=== PATIENT | female | born 1970 | race Caucasian/White ===

== ENCOUNTER 2020-11-22 15:28 | Outpatient (REF) | payer OTHER, SELFPAY | END 2020-11-22 15:29 | disposition home or self-care (01) | LOC: HO.LAB 15:28 | PROVIDERS: Visit Provider Internal Medicine | DX: Z20.822 Contact with and (suspected) exposure to COVID-19 (principal) | CPT/HCPCS: C9803; U0003; U0005 ==

== ENCOUNTER 2021-01-25 11:26 | Outpatient (REF) | payer OTHER, SELFPAY | END 2021-01-25 11:27 | disposition home or self-care (01) | LOC: HO.LAB 11:26 | PROVIDERS: Visit Provider Internal Medicine | DX: Z20.822 Contact with and (suspected) exposure to COVID-19 (principal) | CPT/HCPCS: C9803; U0003; U0005 ==

== ENCOUNTER 2021-02-22 07:14 | Emergency (ER) | payer OTHER, SELFPAY ==
[2021-02-22 07:45] VITALS: BP 134/64; PULSE 102; RESP 18; TEMP 36.6; O2SAT 100; BMI 25.8
--- NOTE | 2021-02-22 08:28 | ED_ITS ---
HPI - URI/Sore Throat General Chief Complaint: Upper Respiratory Symptoms Stated Complaint: flu like symptoms Time Seen by Provider: 02/22/21 08:15 Source: patient Mode of arrival: ambulatory Limitations: no limitations History of Present Illness HPI Narrative: This is a 50 years old patient presented to the emergency department complaining of a runny nose congestion postnasal drip sore throat. Denies any vomiting fever chills chest pain shortness of breath she has no comorbidity she does not take any medicine MD elicited complaint: sore throat, rhinorrhea, nasal congestion and sinus pain Onset (ago): day(s) (1) Consistency: constant Severity: moderate Description of mucous: yellow Able to tolerate fluids by mouth: Yes Exacerbating factors: nothing Associated symptoms: denies other symptoms Related Data Allergies Allergy/AdvReac Type Severity Reaction Status Date / Time aspirin [ASPIRIN] Allergy Mild SWELLING Unverified 04/12/20 16:00 Review of Systems Review of Systems: Yes all other systems are reviewed and are negative Constitutional: Constitutional: Denies fever(s) and Denies headache(s) Eyes: Eyes: Denies eye discharge ENT: Reports facial pain and Denies headache(s) Cardiovascular: Cardiovascular: Denies chest pain Gastrointestinal: Gastrointestinal: Reports no additional gastrointestinal complaints Neurologic: Denies headache(s) [facility] Past Medical History [facility] Narrative: Patient denies any major medical problems Surgical History Hx of tubal ligation Previous section Social History Social History Advance Directives: No Advance Directives Information Provided: No Patient : No Physical Exam Vital Signs: Vital Signs: Last Vital Signs Temp 98 F 02/22/21 07:45 Pulse 102 H 02/22/21 07:45 Resp 18 02/22/21 07:45 BP 134/64 02/22/21 07:45 Pulse Ox 100 02/22/21 07:45 Body Mass Index 25.8 Const: Other: Patient looks well and she is not toxic appearing General: cooperative and healthy appearing Nutritional Appearance: average body habitus Limitations: no limitations HENMT: Other: tenderness in the maxillary /frontal sinuses Head: Yes normal to inspection General nose exam: Normal external nose present Face and sinus: Yes normal facial exam Mouth: Normal oral and palatal mucosa present Teeth and gingiva: dentition normal Throat: Yes other (There is redness in the posterior findings) Eyes: General: appearance normal, both eyes and all related structures EOM: EOMs intact bilaterally Neck: Other: Neck is supple and no tenderness Chest: Other: Lungs examination showed normal lung field no wheezing Resp: Effort & Inspection: normal respiratory effort and able to speak in complete sentences Auscultation: clear to auscultation bilaterally Cardio: Jugular venous distension: no JVD Rate: regular rate Rhythm: regular rhythm GI: Other: Abdomen is soft not tender Palpation (GI): Soft to palpation Skin: Other: Skin exam shows no rashes MDM - URI/Sore Throat MDM Narrative Medical decision making narrative: Patient appear in not toxic a she is afebrile normotensive she has as an oxygen saturation is 100%. Most likely she has a sinusitis will discharge the patient home on p.o. antibiotic
== END 2021-02-22 09:43 | disposition home or self-care (01) ==
PROVIDERS: Emergency Provider Emergency Medicine; PCP Internal Medicine
DX: J06.9 Acute upper respiratory infection, unspecified (principal); J32.9 Chronic sinusitis, unspecified
CPT/HCPCS: 99282; 99283